=== PATIENT | male | born 1985 | race African-American/Black ===

== ENCOUNTER 2019-04-05 02:13 | Emergency (ER) | payer OTHER ==
[~2019-04-05] VITALS: Ht 177.8 cm; Wt 90.7 kg
[2019-04-05 02:23] VITALS: BP 109/61
[2019-04-05] MEDS ORDERED: ATROPINE 1 MG/10 ML DISP.SYRINGE. IM ONE (02:30)
--- NOTE | 2019-04-05 02:31 | PHYS DOC ---
Past History Past Medical History: No Pertinent History Past Surgical History: No Surgical History Alcohol Use: None Drug Use: None Adult General Chief Complaint Chief Complaint: NAUSEA/VOMITING/DIARRHEA HPI HPI Patient is a 33-year-old male who presents with complaint of nausea with vomiting and diarrhea that started at about 1:00 this morning. Patient states that he had eaten [employer] earlier in the evening and thinks that that may have been the cause. He states that he has been having a lot of abdominal cramping since onset of symptoms. He rates that as moderate. He states that his last episode of vomiting was about 10 minutes ago. He also complains of headache that he states started after the throwing up started. He rates that as moderate.[] Review of Systems Review of Systems Constitutional: Denies fever or chills [] Respiratory: Denies cough or shortness of breath [] Cardiovascular: No additional information not addressed in HPI [] GI: Complains of abdominal cramping with vomiting and diarrhea [] : Denies dysuria or hematuria [] Neurologic: Complains of headache without focal weakness or sensory changes [] All other systems were reviewed and found to be within normal limits, except as documented in this note. Physical Exam Physical Exam Constitutional: Well developed, well nourished, no acute distress, non-toxic appearance. [] HENT: Normocephalic, atraumatic, bilateral external ears normal, oropharynx moist, no oral exudates, nose normal. [] Eyes: PERRLA, EOMI, conjunctiva normal, no discharge. [] Neck: Normal range of motion, no tenderness, supple, no stridor. [] Cardiovascular: Regular rate and rhythm[] Lungs & Thorax: Bilateral breath sounds clear to auscultation [] Abdomen: Bowel sounds normal, soft, with mild left lower abdominal tenderness. [] Skin: Warm, dry, no erythema, no rash. [] Extremities: No tenderness, no cyanosis, no clubbing, ROM intact, no edema. [] Neurologic: Alert and oriented X 3, no focal deficits noted. [] Current Patient Data Vital Signs Vital Signs Date Time Temp Pulse Resp B/P (MAP) Pulse Ox O2 Delivery O2 Flow Rate FiO2 04/05/19 02:23 98.5 83 18 99 Room Air EKG EKG [] Radiology/Procedures Radiology/Procedures [] Course & Med Decision Making Course & Med Decision Making Pertinent Labs and Imaging studies reviewed. (See chart for details) [] Dragon Disclaimer Dragon Disclaimer This electronic medical record was generated, in whole or in part, using a voice recognition dictation system. Departure Departure: Impression: Primary Impression: Gastroenteritis Disposition: 01 HOME, SELF-CARE Condition: STABLE Patient Instructions: Viral Gastroenteritis Scripts Diphenoxylate Hcl/Atropine (LOMOTIL TABLET) 1 Each Tablet 1 TAB PO TID PRN for DIARRHEA, #15 TAB Prov: LEEANNE SWIFT Jr. DO 04/05/19 Ondansetron Hcl (ZOFRAN) 4 Mg Tablet 4 MG PO Q6HRS PRN for NAUSEA, #12 TAB Prov: LEEANNE SWIFT Jr. DO 04/05/19 LEEANNE SWIFT Jr. DO Apr 05, 2019 02:31
[2019-04-05 02:55] LABS: BASO % 0 % (0-3); EOS # 0.2 x10^3/uL (0.0-0.7); EOS % 2 % (0-3); HEMATOCRIT 46.9 % (39.0-53.0); HEMOGLOBIN 15.2 g/dL (13.0-17.5); LYMPH % 11 % (24-48); MEAN CORPUSCULAR HEMOGLOBIN 31 pg (25-35); MEAN CORPUSCULAR HGB CONC 32 g/dL (31-37); MEAN CORPUSCULAR VOLUME 95 fL (79-100); MONO # 0.8 x10^3/uL (0.0-1.1); MONO % 8 % (0-9); NEUT # 7.4 x10^3uL (1.8-7.7); NEUT % 79 % (31-73); PLATELET COUNT 227 x10^3/uL (140-400); RED BLOOD COUNT 4.95 x10^6/uL (4.30-5.70); RED CELL DISTRIBUTION WIDTH 12.7 % (11.5-14.5); WHITE BLOOD COUNT 9.3 x10^3/uL (4.0-11.0)
[2019-04-05] MEDS ORDERED: IV NORMAL SALINE 1,000ML 1,000 ML IV SCH (03:00)
[2019-04-05] MEDS ORDERED: ONDANSETRON PF 4 MG/2 ML VIAL. IV ONE (03:00)
[2019-04-05] MEDS ORDERED: ATROPINE SULFATE 1 MG VIAL IM ONE (03:00)
[2019-04-05 03:08] LABS: ALBUMIN 4.1 g/dL (3.4-5.0); ALBUMIN/GLOBULIN RATIO 1.3 (1.0-1.7); CALCIUM 8.8 mg/dL (8.5-10.1); CREATININE 1.4 mg/dL (0.7-1.3); GFR 69.8; POTASSIUM 4.1 mmol/L (3.5-5.1); TOTAL BILIRUBIN 0.6 mg/dL (0.2-1.0); TOTAL PROTEIN 7.2 g/dL (6.4-8.2)
[2019-04-05 04:32] LABS: BILIRUBIN,URINE NEG (NEG); CLARITY,URINE CLEAR; COLOR,URINE YELLOW; GLUCOSE,URINE NEG (NEG); UROBILINOGEN,URINE 4 mg/dL (0.2 mg/dL)
[2019-04-05 04:33] LABS: BACTERIA,URINE 0 /HPF (0-FEW); NITRITE,URINE NEG (NEG); RBC,URINE 0 /HPF (0-2); SQUAMOUS EPITHELIAL CELL,UR OCC /LPF; WBC,URINE OCC /HPF (0-4)
[2019-04-05] MEDS ORDERED: ONDA4TAB7 PO (04:38)
[2019-04-05] MEDS ORDERED: DIPH1TAB PO (04:39)
== END 2019-04-05 04:55 | disposition home or self-care (01) ==
LOC: ER 02:13
DX: K52.9 Noninfective gastroenteritis and colitis, unspecified (principal); R51 Headache
CPT/HCPCS: 36415; 80053; 81001; 83690; 85025; 96361; 96372; 96374; 99284; J0461; J2405; J7030

== ENCOUNTER 2019-07-22 09:18 | Emergency (ER) | payer OTHER ==
[~2019-07-22] VITALS: Ht 177.8 cm; Wt 90.7 kg
[~2019-07-22 09:18] MED LIST: DIPH1TAB PO; ONDA4TAB7 PO
--- NOTE | 2019-07-22 10:04 | PHYS DOC ---
Past History Past Medical History: Anxiety, Other Additional Past Medical Histor: heart murmur, Past Surgical History: No Surgical History Alcohol Use: None Drug Use: None Adult General Chief Complaint Chief Complaint: CHEST PAIN HPI HPI Patient is a 33-year-old male who presented to ER today for evaluation of chest pain and trouble breathing for 3 days. Patient described the pain as sharp and aching she denies any fever. Patient has a cough, nonproductive in nature. Patient denies any recent travel or operation. Patient had no history of coronary artery disease, no diabetic, NO hypertension, no blood clot disorder. he denies any nausea vomiting. He denies any family history of heart disease. All other ROS is negative unless otherwise noted in HPI Review of Systems Review of Systems See above Allergies Allergies Allergies Coded Allergies Type Severity Reaction Last Updated Verified No Known Drug Allergies 04/05/19 No Physical Exam Physical Exam See above Constitutional: Well developed, well nourished, no acute distress, non-toxic appearance. [] HENT: Normocephalic, atraumatic, bilateral external ears normal, oropharynx moist, no oral exudates, nose normal. [] Eyes: PERRLA, EOMI, conjunctiva normal, no discharge. [] Neck: Normal range of motion, no tenderness, supple, no stridor. [] Cardiovascular:Heart rate regular rhythm, no murmur [] Lungs & Thorax: Bilateral breath sounds clear to auscultation [] Abdomen: Bowel sounds normal, soft, no tenderness, no masses, no pulsatile masses. [] Skin: Warm, dry, no erythema, no rash. [] Back: No tenderness, no CVA tenderness. [] Extremities: No tenderness, no cyanosis, no clubbing, ROM intact, no edema. [] Neurologic: Alert and oriented X 3, normal motor function, normal sensory function, no focal deficits noted. [] Psychologic: Affect normal, judgement normal, mood normal. [] Current Patient Data Vital Signs Vital Signs Date Time Temp Pulse Resp B/P (MAP) Pulse Ox O2 Delivery O2 Flow Rate FiO2 07/22/19 09:39 97.9 75 16 99 Room Air EKG EKG [][address] [address] IMAGING REPORT Signed PATIENT: MERON GORDON LACCOUNT: [id number] : 1985 LOCATION: ER AGE: 33 SEX: M EXAM STATUS: REG ER ORD. PHYSICIAN: ZULEIKA TORRES DO REASON: chest pain PROCEDURE: PORTABLE CHEST 1V EXAM: Chest, single view. HISTORY: Chest pain. COMPARISON: None. FINDINGS: A frontal view of the chest obtained. There is no infiltrate, pleural effusion or pneumothorax. The heart is normal in size. IMPRESSION: No acute pulmonary finding. Electronically signed by: Nanette Diaz MD (07/22/2019 10:29 AM) [facility] DICTATED AND SIGNED BY: NANETTE DIAZ MD DATE: 07/22/19 1029 CC: PCP,MANJULA; ZULEIKA TORRES DO ~ Radiology/Procedures Radiology/Procedures EKG was done, read by this physician at 0933, NSR, RATE OF 71 BPM, NO STEMI.[] Course & Med Decision Making Course & Med Decision Making Pertinent Labs and Imaging studies reviewed. (See chart for details) [] Dragon Disclaimer Dragon Disclaimer This electronic medical record was generated, in whole or in part, using a voice recognition dictation system. Departure Departure: Disposition: HOME/RESIDENCE PRIOR TO ADM Condition: STABLE Referrals: PCPMANJULA (PCP) ZULEIKA TORRES DO Jul 22, 2019 10:04
[2019-07-22 10:17] LABS: BASO # 0.1 x10^3/uL (0.0-0.2); BASO % 1 % (0-3); EOS # 0.2 x10^3/uL (0.0-0.7); EOS % 3 % (0-3); HEMATOCRIT 41.1 % (39.0-53.0); HEMOGLOBIN 13.8 g/dL (13.0-17.5); LYMPH # 2.4 x10^3/uL (1.0-4.8); LYMPH % 32 % (24-48); MEAN CORPUSCULAR HEMOGLOBIN 31 pg (25-35); MEAN CORPUSCULAR HGB CONC 34 g/dL (31-37); MEAN CORPUSCULAR VOLUME 92 fL (79-100); MONO # 0.5 x10^3/uL (0.0-1.1); MONO % 6 % (0-9); NEUT # 4.3 x10^3uL (1.8-7.7); NEUT % 58 % (31-73); PLATELET COUNT 222 x10^3/uL (140-400); RED BLOOD COUNT 4.47 x10^6/uL (4.30-5.70); RED CELL DISTRIBUTION WIDTH 12.2 % (11.5-14.5); WHITE BLOOD COUNT 7.4 x10^3/uL (4.0-11.0)
[2019-07-22 10:32] LABS: ANION GAP 6 (6-14); BLOOD UREA NITROGEN 12 mg/dL (8-26); BUN/CREATININE RATIO 13 (6-20); CALCIUM 8.6 mg/dL (8.5-10.1); CARBON DIOXIDE 29 mmol/L (21-32); CHLORIDE 107 mmol/L (98-107); CREATININE 0.9 mg/dL (0.7-1.3); GFR 116.2; GLUCOSE 123 mg/dL (70-99); POTASSIUM 3.5 mmol/L (3.5-5.1); SODIUM 142 mmol/L (136-145)
--- NOTE | 2019-07-22 10:32 | RAD ---
EXAM: Chest, single view. HISTORY: Chest pain. COMPARISON: None. FINDINGS: A frontal view of the chest obtained. There is no infiltrate, pleural effusion or pneumothorax. The heart is normal in size. IMPRESSION: No acute pulmonary finding. Electronically signed by: Nanette Diaz MD (07/22/2019 10:29 AM) [place] [id number]
[2019-07-22 10:44] LABS: ALBUMIN 3.8 g/dL (3.4-5.0); ALBUMIN/GLOBULIN RATIO 1.2 (1.0-1.7); ALK PHOS 52 U/L (46-116); ALT (SGPT) 42 U/L (16-63); AST (SGOT) 30 U/L (15-37); LIPASE 125 U/L (73-393); MAGNESIUM 1.8 mg/dL (1.8-2.4); TOTAL BILIRUBIN 0.5 mg/dL (0.2-1.0); TOTAL PROTEIN 6.9 g/dL (6.4-8.2)
[2019-07-22 11:25] VITALS: BP 110/58
--- NOTE | 2019-07-22 17:40 | EKG ---
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
== END 2019-07-22 11:29 | disposition home or self-care (01) ==
LOC: ER 09:18
DX: R07.89 Other chest pain (principal); R05 Cough; F41.9 Anxiety disorder, unspecified
CPT/HCPCS: 36415; 71045; 80053; 83690; 83735; 83880; 84484; 85025; 85610; 85730; 93005; 99285

== ENCOUNTER 2020-09-06 14:18 | Emergency (ER) | payer MEDICARE, OTHER ==
[~2020-09-06] VITALS: Ht 177.8 cm; Wt 86.3 kg
[2020-09-06 15:20] VITALS: BP 134/74
--- NOTE | 2020-09-06 15:30 | PHYS DOC ---
Past History Past Medical History: Anxiety, Other Additional Past Medical Histor: heart murmur, Past Surgical History: No Surgical History Alcohol Use: None Drug Use: None General Adult EDM: Chief Complaint: OVERDOSE HPI: HPI: Patient is a 34-year-old male comes to emergency department for concerns of an overdose. Says he thought he was snorting a small amount of heroin to take side effect no due to symptoms of shakiness and palpitations. Patient states he also was just draped a energy drink. States he drinks and drinks daily but usually does not shaking with them. Denies any methamphetamine or other stimulant use. States he started the drugs about 45 minutes prior to arrival. Denies any sleepiness, vision changes, vomiting or diarrhea, fevers. Review of Systems: Review of Systems: All other systems within normal limits except for as noted in the HPI Allergies: Allergies: Allergies Coded Allergies Type Severity Reaction Last Updated Verified No Known Drug Allergies 04/05/19 No Physical Exam: PE: Constitutional: Well developed, well nourished, no acute distress, non-toxic appearance. [] HENT: Normocephalic, atraumatic, bilateral external ears normal, nose normal. [] Eyes: PERRLA, pupils 3 mm, conjunctiva normal, no discharge. [] Neck: No rigidity, supple, no stridor. [] Cardiovascular: Regular rate and rhythm, brisk cap refill [] Lungs & Thorax: Non labored symmetric respirations, no tachypnea or respiratory distress [] Abdomen: Soft, nondistended. Skin: Warm, dry, no erythema, no rash. [] Back: Unremarkable Extremities: No deformities, range of motion grossly intact, no lower extremity edema [] Neurologic: Alert and oriented X 3, no focal deficits noted. [] Psychologic: Affect normal, judgement normal, mood normal. [] Current Patient Data: Vital Signs: Vital Signs Date Time Temp Pulse Resp B/P (MAP) Pulse Ox O2 Delivery O2 Flow Rate FiO2 09/06/20 14:20 97.6 105 18 140/83 (102) 97 Room Air EKG: EKG: Sinus rhythm, heart rate 87 bpm, left axis deviation, no ST elevation or depression, normal intervals, no ectopy. [] Radiology/Procedures: Radiology/Procedures: [] Heart Score: Risk Factors: Risk Factors: DM, Current or recent (<one month) smoker, HTN, HLP, family history of CAD, obesity. Risk Scores: Score 0 - 3: 2.5% MACE over next 6 weeks - Discharge Home Score 4 - 6: 20.3% MACE over next 6 weeks - Admit for Clinical Observation Score 7 - 10: 72.7% MACE over next 6 weeks - Early Invasive Strategies Course & Med Decision Making: Course & Med Decision Making Presentation and exam are concerning. Discussed drug cessation with patient. And the possibility that drugs might have been laced with a stimulant. [] Dragon Disclaimer: Dragon Disclaimer: This electronic medical record was generated, in whole or in part, using a voice recognition dictation system. Departure Departure: Impression: Primary Impression: Opioid abuse Disposition: 01 DC HOME SELF CARE/HOMELESS Condition: STABLE Referrals: CARRILLO TINAJERO (PCP) Patient Instructions: Drug Abuse, FAQs WILIAM HERNANDEZ MD Sep 06, 2020 15:30
--- NOTE | 2020-09-06 16:18 | EKG ---
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
== END 2020-09-06 15:41 | disposition home or self-care (01) ==
LOC: ER 14:18
DX: F11.10 Opioid abuse, uncomplicated (principal); F41.9 Anxiety disorder, unspecified
CPT/HCPCS: 93005; 99283

== ENCOUNTER 2021-10-08 15:16 | Emergency (ER) | payer MEDICARE ==
[~2021-10-08] VITALS: Ht 180.3 cm; Wt 77.0 kg
[2021-10-08] MEDS ORDERED: IPRATRPIUM/ALBUTEROL 0.5/2.5MG 3 ML NEBU. NEB ONE (15:30)
[2021-10-08] MEDS ORDERED: DEXAMETHASONE 4 MG TABLET PO ONE (15:30)
--- NOTE | 2021-10-08 15:33 | PHYS DOC ---
Past History Past Medical History: Anxiety, Other Additional Past Medical Histor: heart murmur, Past Surgical History: No Surgical History Alcohol Use: None Drug Use: None Adult General Chief Complaint Chief Complaint: SHORTNESS OF BREATH HPI HPI Patient is a 35-year-old male who presents emergency department with a chief complaint of cough that is been going on for about 2 weeks has become productive over the last couple of days. States he usually has a little bit of a cough but not this bad. States he is a [id number] smoker and has been smoking cigarettes since he was 10 years old. Denies any recent traumas, travels, illnesses, fevers, chest pain, abdominal pain, nausea, vomiting, dysuria, hematuria or blood in the stool. Denies any numbness/weakness/tingling. States he is eating and drinking normally for him Review of Systems Review of Systems Review of systems otherwise unremarkable except noted in HPI Allergies Allergies Allergies Coded Allergies Type Severity Reaction Last Updated Verified No Known Drug Allergies 04/05/19 No Physical Exam Physical Exam Constitutional: Well developed, well nourished, no acute distress, non-toxic appearance. [] HENT: Normocephalic, atraumatic, oropharynx moist, no oral exudates, nose normal. [] Eyes: conjunctiva normal, no discharge. [] Neck: Normal range of motion, no tenderness, supple, no stridor. [] Cardiovascular: Sinus tachycardia Lungs & Thorax: Bilateral breath sounds with global rhonchi, with no respiratory distress Abdomen: soft, no tenderness, no masses, no pulsatile masses. [] Skin: Warm, dry, no erythema, no rash. [] Back: No tenderness, no CVA tenderness. [] Extremities: No tenderness, no cyanosis, no clubbing, ROM intact, no edema. [] Neurologic: Alert and oriented X 3, normal motor function, normal sensory function, no focal deficits noted. [] Psychologic: Affect normal, judgement normal, mood normal. [] Current Patient Data Vital Signs Vital Signs Date Time Temp Pulse Resp B/P (MAP) Pulse Ox O2 Delivery O2 Flow Rate FiO2 10/08/21 15:23 97.9 106 18 136/75 (95) 100 Room Air EKG EKG [] Radiology/Procedures Radiology/Procedures [] Heart Score C/O Chest Pain: No Risk Factors: Risk Factors: DM, Current or recent (<one month) smoker, HTN, HLP, family history of CAD, obesity. Risk Scores: Risk Factors: DM, Current or recent (<one month) smoker, HTN, HLP, family history of CAD, obesity. Course & Med Decision Making Course & Med Decision Making Patient is a 35-year-old male with a 30 pack year smoking history presents with productive cough over the last couple of weeks Vital signs notable for sinus tachycardia. Physical exam noted above. Given breathing treatment and steroids given probable undiagnosed COPD EKG with a rate of 87, QRS of 80, QTc of 400, no STEMI. Troponin not concerning. Chest x-ray with no acute findings. Breathing treatment did help with symptoms Discussed all findings with patient. Discussed COPD and management including stopping cigarette smoking. Advised to follow-up in the morning with primary care physician update on ED visit and set up a follow-up visit Gave return precautions to the ED. Patient grateful, verbalized understanding and agreed with plan of discharge. Dragon Disclaimer Dragon Disclaimer This electronic medical record was generated, in whole or in part, using a voice recognition dictation system. Departure Departure: Impression: Primary Impression: Productive cough Additional Impression: Tobacco use Disposition: HOME / SELF CARE / HOMELESS Condition: STABLE Referrals: CARRILLO TINAJERO (PCP) Patient Instructions: Chronic Obstructive Pulmonary Disease, Chronic Obstructive Pulmonary Disease Exacerbation Additional Instructions: Thank you for coming into the emergency department tonight and allowing us to take care of you. Please read the attached information carefully to go back over things we discussed. It is very important that you see smoking cigarettes as you are starting to show signs of COPD/chronic obstructive pulmonary disorder. Please read the information given to you on this. As we discussed if you quit smoking your lungs can heal quite nicely. Please follow-up with your primary care physician in the morning to update on your ED visit and discuss COPD. Please come back with new or concerning symptoms as discussed. Problem Qualifiers QUIRINO BRAXTON MD Oct 08, 2021 15:32
--- NOTE | 2021-10-08 16:02 | RAD ---
XR CHEST 1V 10/08/2021 3:58 PM INDICATION: Cough COMPARISON: 07/22/2019 TECHNIQUE: Portable frontal view of the chest is provided. FINDINGS: The cardiomediastinal silhouette is within normal limits. Lungs are clear. There are no significant pleural effusions. There is no pulmonary vascular congestion. No pneumothora x. No suspicious osseous abnormality. IMPRESSION: There is no acute cardiopulmonary process. Electronically signed by: Mica Cope MD (10/08/2021 4:00 PM) [id number]
[2021-10-08 16:25] VITALS: BP 127/74
--- NOTE | 2021-10-08 19:35 | EKG ---
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
== END 2021-10-08 16:45 | disposition home or self-care (01) ==
LOC: ER 15:16
DX: R05.9 Cough, unspecified (principal); F41.9 Anxiety disorder, unspecified; Z72.0 Tobacco use
CPT/HCPCS: 36415; 71045; 84484; 93005; 94640; 99285; J8540